=== PATIENT | female | born 1985 | race Caucasian/White ===

== ENCOUNTER 2021-10-19 09:53 | Inpatient (IN) | payer OTHER ==
[2021-10-19 10:45] VITALS: BMI 34.8
[2021-10-19] MEDS ORDERED: SWEETCHEEKS 40% (RESTRICTED TO NURSERY) GLUCOSE GEL PO ONE (13:12)
[2021-10-19] MEDS ORDERED: OXYTOCIN 20 UNITS in 0.9% NS 20 UNIT/1,000 ML INFUS.BAG IV ONE ×2 (13:37→16:18)
[2021-10-19] MEDS ORDERED: ELECTROLYTE-148 SOLN 500 ML IV ONE (13:41)
[2021-10-19] MEDS ORDERED: morphine SULFATE/PF 1 MG/2 ML (2cc Syringe - QUVA) ONE (13:42)
[2021-10-19] MEDS ORDERED: CITRIC ACID/SODIUM CITRATE 30 ML UNIT-DOSE CUP PO ONE (13:43)
[2021-10-19] MEDS ORDERED: ELECTROLYTE-148 SOLN 1,000 ML IV SCH (13:45)
[2021-10-19] MEDS ORDERED: KETOROLAC TROMETHAMINE 30 MG/1 ML VIAL ONE (13:45)
[2021-10-19] MEDS ORDERED: ONDANSETRON 4 MG/2 ML VIAL ONE (13:45)
[2021-10-19] MEDS ORDERED: ceFAZolin SODIUM 1 GM VIAL ONE (14:23)
[2021-10-19] MEDS ORDERED: SENNOSIDES/DOCUSATE COMBO (SENNA PLUS) TABLET (UD) PO PRN (15:34)
[2021-10-19] MEDS ORDERED: ACETAMINOPHEN 325 MG TABLET (FP) PO PRN (15:34)
[2021-10-19] MEDS ORDERED: METHYLERGONOVINE MALEATE 0.2 MG/1 ML AMP IM PRN (15:34)
[2021-10-19] MEDS ORDERED: IBUPROFEN 800 MG/8 ML IJ IVPB PRN (15:34)
[2021-10-19] MEDS ORDERED: morphine SULFATE/PF 1 MG/2 ML (2cc Syringe - QUVA) IT ONE (15:38)
[2021-10-19] MEDS ORDERED: ONDANSETRON 4 MG/2 ML VIAL IVPUSH PRN (15:38)
[2021-10-19] MEDS ORDERED: ACETAMINOPHEN 1000 MG/100 ML BAG IVPB ONE (15:40)
[2021-10-19] MEDS: OXYTOCIN 20 UNITS in 0.9% NS 20 UNIT/1,000 ML INFUS.BAG IV SCH (16:13)
[2021-10-20] MEDS: OXYTOCIN 20 UNITS in 0.9% NS 20 UNIT/1,000 ML INFUS.BAG IV SCH ×2 (00:05→16:22)
[2021-10-20] MEDS ORDERED: oxyCODONE HCL 5 MG TABLET PO PRN ×2 (03:34)
[2021-10-20 08:15] LABS: BASO % 0.2 % (0-2.0); HEMATOCRIT 29.6 % (32.4-45.2); HEMOGLOBIN 10.1 GM/dL (10.7-15.3); LYMPH % 25.3 % (8-40); MCH 28.9 pg (25.7-33.7); MEAN CELL VOLUME 85.1 fl (80-96); MEAN PLT VOLUME 7.5 fl (7.5-11.1); MONO % 7.9 % (3.8-10.2); NEUT % 65.6 % (42.8-82.8); PLATELET COUNT 145 10^3/uL (134-434); RBC 3.48 M/mm3 (3.60-5.2); RDW 15.9 % (11.6-15.6)
[2021-10-20] MEDS: IBUPROFEN 600 MG TABLET (FP) PO PRN ×3 (10:45→23:42)
[2021-10-20] MEDS: SIMETHICONE 80 MG TAB.CHEW (FP) PO PRN ×2 (10:45→23:42)
[2021-10-20] MEDS: PRENATAL VITAMINS W/ FOLIC ACID TABLET (FP) PO SCH (10:45)
[2021-10-20] MEDS ORDERED: BISACODYL 10 MG SUPP.RECT RC PRN (15:34)
[2021-10-21] MEDS: IBUPROFEN 600 MG TABLET (FP) PO PRN ×3 (07:51→16:56)
[2021-10-21] MEDS: SIMETHICONE 80 MG TAB.CHEW (FP) PO PRN ×3 (07:52→17:02)
[2021-10-21] MEDS: PRENATAL VITAMINS W/ FOLIC ACID TABLET (FP) PO SCH (09:48)
[2021-10-21 10:10] VITALS: BP 111/69; PULSE 70; TEMP 98.7
== END 2021-10-21 18:15 | disposition home or self-care (01) | DRG 540 ==
LOC: JLDR 09:53 → J3W 17:21
PROVIDERS: ADMIT Obstetrics & Gynecology; ATTEND Obstetrics & Gynecology
PROC: 10D00Z1 Extraction of Products of Conception, Low, Open Approach (ICD-10-PCS; principal; 2021-10-19)
DX: O34.211 Maternal care for low transverse scar from previous cesarean delivery (principal); O24.424 Gestational diabetes mellitus in childbirth, insulin controlled; O32.8XX0 Maternal care for other malpresentation of fetus, not applicable or unspecified; Z37.0 Single live birth; Z3A.38 38 weeks gestation of pregnancy
CPT/HCPCS: 36415; 82962; 85025; 86850; 86900; 86901; 88307-TC